=== PATIENT | female | born 1970 | race Caucasian/White ===

== ENCOUNTER 2022-06-15 00:21 | Day surgery (SDC) | payer BC, SELFPAY ==
[2022-05-28 14:12] VITALS: BMI 42.1
--- NOTE | 2022-06-14 13:29 | WPDANESEPPF ---
Anes - Initial Pre Proc Eval Procedure: Operation Date: 06/15/22 09:30 Proposed Procedures p Screening Colonoscopy - Randell Glass MD Date/Time: 06/14/22 13:29 Surgeon: Randell Glass MD Pre Op Diagnosis: neoplasm screening Patient Data Age: 51 Gender: F Height: 1.85 m Weight: 145 kg Allergies Allergy/AdvReac Type Severity Reaction Status Date / Time Penicillins Allergy Severe hives Verified 06/15/22 08:35 Home Medications Medication Instructions Recorded Confirmed Type bupropion HCl 100 mg tablet,12 hr 100 mg PO BID #180 tabs 03/28/22 06/08/22 Rx sustained-release metformin 500 mg tablet,extended 500 mg PO BID #180 tabs 03/28/22 06/08/22 Rx release 24 hr olmesartan 40 1 tablet PO DAILY #90 tabs 03/28/22 06/08/22 Rx mg-hydrochlorothiazide 25 mg tablet sodium sul 1.479 gram-potas ch See Rx Instructions PO PER PKG DIR 04/09/22 06/08/22 Rx 0.188 gram-magnes sul 0.225 gram #24 tabs tablet (Sutab) semaglutide 7 mg tablet (Rybelsus) See Rx Instructions .Route 05/23/22 06/08/22 Rx .COMPLEX #30 tabs levothyroxine 125 mcg tablet 125 mcg PO DAILY #90 tabs 06/07/22 06/08/22 Rx rosuvastatin 5 mg tablet See Rx Instructions .Route 06/07/22 06/08/22 Rx .COMPLEX #90 tabs Patient hx anesthesia problems: none Family hx anesthesia problems: none Results Review: All pre-operative results and documents have been reviewed as part of the pre-operative evaluation. [facility] Past Medical History Medical History Diabetes type 2, controlled History of endometrial biopsy (02/05/11) menorrhagia HTN (hypertension) Major depressive disorder, recurrent, moderate Mixed hyperlipidemia Screening mammogram, encounter for Tobacco use Surgical History Surgical History History of endometrial ablation (02/14/11) hscope endometrial ablation/tubal ligation--menorrhagia Family History Family History Mother Rhabdomyosarcoma Hypertension Lymphoma Father Hypertension Family history of elevated blood lipids Lymphoma Esophageal cancer Diabetes mellitus Grandparent Hypertension Breast cancer Diabetes mellitus Sibling Family history of elevated blood lipids Other Family history of osteoarthritis Social History Social History (Updated 06/08/22 @ 08:15 by ROLA Salomon) Social History: Engaged Years smoked: 10 Smoking status: Light tobacco smoker Tobacco type: cigarettes Second hand tobacco smoke exposure: Yes Smoking end date: 06/10/19 Additional smoking assessment comments: Pt smokes 2 cigarettes a week. Alcohol intake: never Substance use: never Substance use type: does not use Additional living arrangements comments: pt lives with fiance Additional occupation/education comments: Finance Gender identity (if verbalized by the patient): Female Sexual Orientation (if Verbalized by the Patient): Straight or Heterosexual Spiritual care concerns: No Anes - Eval Final PreProcedure Day of Procedure 06/14/22 13:29 Patient weight: morbidly obese Heart: regular rate and rhythm Lungs: clear to auscultation Airway: Mallampati scale class II Neurological: alert and oriented Last oral intake: >/= 8 hours ASA classification: III Emergent: no Anesthetic plan: proceed Anesthesia type and monitoring: general GIVS and standard monitoring Results Review: All pre-operative results and documents have been reviewed as part of the pre-operative evaluation. Informed Consent: The patient's anesthetic plan and its attendant risks and benefits were discussed with the patient/family/POA. Questions were solicited and answers provided to the satisfaction of the patient/family/POA.
[2022-06-15 08:36] VITALS: BP 135/77; PULSE 61; RESP 20; TEMP 36.4; O2SAT 99
[2022-06-15] MEDS: LACTATED RINGERS 1,000 ML 150 ML IV CONT (08:48)
[2022-06-15 08:49] LABS: Glucose Point of Care 92 mg/dl (65-105)
--- NOTE | 2022-06-15 09:08 | PM.HPGS ---
History of Present Illness History of Present Illness Consent: Risks, benefits, and alternatives have been discussed and questions answered. Patient agrees to proceed with procedure. Chief complaint: neoplasm screening Narrative: Thelma Wetzel is a 51 year old female here for first screening colonoscopy Review of Systems Constitutional: Constitutional: Denies headache(s) and Denies weakness Eyes: Eyes: Denies blurry vision ENT: Reports Normal hearing present, Denies headache(s) and Denies neck pain Cardiovascular: Cardiovascular: Denies chest pain and Denies dyspnea Respiratory: Respiratory: Denies dyspnea Gastrointestinal: Gastrointestinal: Reports no additional gastrointestinal complaints Genitourinary: Genitourinary: Denies dysuria Musculoskeletal: Musculoskeletal: Denies neck pain Integumentary/Breasts: Skin/Breast: Denies dry skin Neurologic: Reports Normal hearing present, Denies headache(s) and Denies weakness Psychiatric: Psychiatric: Denies anxiety Endocrine: Endocrine: Denies change in body appearance Hematologic/Lymphatic: Hematologic/Lymphatic: Denies easy bleeding Allergic/Immunologic: Allergic/Immunologic: Denies urticaria PMFSH Past Medical History Medical History Diabetes type 2, controlled History of endometrial biopsy (02/05/11) menorrhagia HTN (hypertension) Major depressive disorder, recurrent, moderate Mixed hyperlipidemia Screening mammogram, encounter for Tobacco use Surgical History Surgical History History of endometrial ablation (02/14/11) hscope endometrial ablation/tubal ligation--menorrhagia Family History Family History Mother Rhabdomyosarcoma Hypertension Lymphoma Father Hypertension Family history of elevated blood lipids Lymphoma Esophageal cancer Diabetes mellitus Grandparent Hypertension Breast cancer Diabetes mellitus Sibling Family history of elevated blood lipids Other Family history of osteoarthritis Social History Social History (Updated 06/08/22 @ 08:15 by ROLA Salomon) Social History: Engaged Years smoked: 10 Smoking status: Light tobacco smoker Tobacco type: cigarettes Second hand tobacco smoke exposure: Yes Smoking end date: 06/10/19 Additional smoking assessment comments: Pt smokes 2 cigarettes a week. Alcohol intake: never Substance use: never Substance use type: does not use Living arrangements: with family Additional living arrangements comments: pt lives with fiance Additional occupation/education comments: Finance Gender identity (if verbalized by the patient): Female Sexual Orientation (if Verbalized by the Patient): Straight or Heterosexual Spiritual care concerns: No Meds Home Medications and Allergies Home Medications Medication Instructions Recorded Confirmed Type bupropion HCl 100 mg tablet,12 hr 100 mg PO BID #180 tabs 03/28/22 06/08/22 Rx sustained-release metformin 500 mg tablet,extended 500 mg PO BID #180 tabs 03/28/22 06/08/22 Rx release 24 hr olmesartan 40 1 tablet PO DAILY #90 tabs 03/28/22 06/08/22 Rx mg-hydrochlorothiazide 25 mg tablet sodium sul 1.479 gram-potas ch See Rx Instructions PO PER PKG DIR 04/09/22 06/08/22 Rx 0.188 gram-magnes sul 0.225 gram #24 tabs tablet (Sutab) semaglutide 7 mg tablet (Rybelsus) See Rx Instructions .Route 05/23/22 06/08/22 Rx .COMPLEX #30 tabs levothyroxine 125 mcg tablet 125 mcg PO DAILY #90 tabs 06/07/22 06/08/22 Rx rosuvastatin 5 mg tablet See Rx Instructions .Route 06/07/22 06/08/22 Rx .COMPLEX #90 tabs Allergies Allergy/AdvReac Type Severity Reaction Status Date / Time Penicillins Allergy Severe hives Verified 06/15/22 08:35 Vital Signs Vital Signs - 24 hr 06/15/22 08:36 Temperature 97.5 F L Pulse Rate 61 Respiratory Rate 20 Blood Pressure 135/77 Pulse Oxi
[2022-06-15 09:30] VITALS: BP 113/70; PULSE 72; RESP 17; O2SAT 95
[2022-06-15 09:40] VITALS: BP 105/77; PULSE 65; RESP 14; O2SAT 96
[2022-06-15 09:50] VITALS: BP 127/73; PULSE 71; RESP 18; O2SAT 99
== END 2022-06-15 09:57 | disposition home or self-care (01) ==
PROVIDERS: PCP Family Medicine; Visit Provider Internal Medicine Gastroenterology
PROC: 0DJD8ZZ Inspection of Lower Intestinal Tract, Via Natural or Artificial Opening Endoscopic (ICD-10-PCS; CPT 45378; principal; 2022-06-15 09:30)
DX: Z12.11 Encounter for screening for malignant neoplasm of colon (principal); K57.30 Diverticulosis of large intestine without perforation or abscess without bleeding; K64.8 Other hemorrhoids; K64.4 Residual hemorrhoidal skin tags; E11.9 Type 2 diabetes mellitus without complications; I10 Essential (primary) hypertension; F32.A Depression, unspecified; E78.2 Mixed hyperlipidemia; F17.210 Nicotine dependence, cigarettes, uncomplicated; E03.9 Hypothyroidism, unspecified; Z79.84 Long term (current) use of oral hypoglycemic drugs; E66.01 Morbid (severe) obesity due to excess calories; Z68.41 Body mass index [BMI] 40.0-44.9, adult
CPT/HCPCS: 45378; 82948; J2704; J7120

== ENCOUNTER → 2022-07-03 12:09 | Outpatient (CLI) | payer BC, SELFPAY ==
--- NOTE | ~2022-07-03 | MM_ITS ---
EXAMINATION: MM screening [facility] BI w amina HISTORY: Screening mammogram TECHNIQUE: Craniocaudal and mediolateral oblique 3-D tomosynthesis images were obtained and synthetic 2-D images were generated. CAD analysis was submitted and interpreted. COMPARISON: 08/27/2019, 04/18/2016 BREAST PARENCHYMAL COMPOSITION: The breasts are heterogeneously dense, which may obscure small masses . FINDINGS: There is no suspicious mass, calcification, or architectural distortion to suggest malignan cy in either breast. There has been no suspicious interval change. IMPRESSION: 1. No mammographic evidence of malignancy. 2. Recommend routine screening mammography in one year. BI-RADS Category 1: Negative Reviewed, dictated and finalized at location A.
== END ==
PROVIDERS: PCP Family Medicine; Visit Provider Obstetrics & Gynecology
DX: Z12.31 Encounter for screening mammogram for malignant neoplasm of breast (principal)
CPT/HCPCS: 77063; 77067

== ENCOUNTER 2023-09-06 10:09 | Outpatient (CLI) | payer BC, SELFPAY ==
--- NOTE | 2023-09-06 10:16 | EST_ITS ---
Patient Info Name: Thelma Wetzel Age: 53 years : 1970 Gender: Female Ht: 73 in Wt: 310 lbs BSA: 2.75 m2 Exam Date: 09/06/2023 10:36 AM Exam Location: Echo Lab Patient Status: Outpatient Admit Date: 09/06/2023 Staff Ordering Physician: Ruthy Jenkins PA-C Attending Provider: Ruthy Jenkins PA-C Exercise Technologist: Rosie Rausch RDCS Exercise Physician: Melvin Luo DO Exam Type: CA stress test treadmill Study Info Indications R07.9 - Chest pain, unspecified A treadmill exercise stress test was performed. Summary 1. 1. Negative Melecio exercise stress test for ischemic ST changes by ECG criteria. However patient achieved only 80% MPHR for age group which reduces sensitivity of the test. 2. 2. Reduced functional capacity, achieving 7 METs of workload. 3. 3. Baseline hypertension. 4. 4. Appropriate HR response to exercise. 5. 5. Appropriate HR recovery at 1 minute post exercise. 6. 6. No imaging with stress testing. 7. 7. Patient informed of the above results. Protocol: Melecio Stress ECG Details Stage: REST Duration (min): 0 min : 52 sec Speed (mph): 0.0 Grade (%): 0 HR (bpm): 60 SBP (mmHg): 145 DBP (mmHg): 73 METS: --- Stage: REST Duration (min): 9 min : 4 sec Speed (mph): 0.0 Grade (%): 0 HR (bpm): 79 SBP (mmHg): 145 DBP (mmHg): 73 METS: --- Stage: STAGE 1 Duration (min): 1 min : 0 sec Speed (mph): 1.7 Grade (%): 10 HR (bpm): 95 SBP (mmHg): 145 DBP (mmHg): 73 METS: --- Stage: STAGE 1 Duration (min): 2 min : 0 sec Speed (mph): 1.7 Grade (%): 10 HR (bpm): 102 SBP (mmHg): 145 DBP (mmHg): 73 METS: --- Stage: STAGE 1 Duration (min): 3 min : 0 sec Speed (mph): 1.7 Grade (%): 10 HR (bpm): 107 SBP (mmHg): 140 DBP (mmHg): 94 METS: --- Stage: STAGE 2 Duration (min): 1 min : 0 sec Speed (mph): 2.5 Grade (%): 12 HR (bpm): 121 SBP (mmHg): 140 DBP (mmHg): 94 METS: --- Stage: STAGE 2 Duration (min): 2 min : 0 sec Speed (mph): 0.0 Grade (%): 0 HR (bpm): 131 SBP (mmHg): 160 DBP (mmHg): 77 METS: --- Stage: STAGE 2 Duration (min): 2 min : 39 sec Speed (mph): 0.0 Grade (%): 0 HR (bpm): 122 SBP (mmHg): 160 DBP (mmHg): 77 METS: --- Stage: RECOVERY Duration (min): 0 min : 21 sec Speed (mph): 0.0 Grade (%): 0 HR (bpm): 118 SBP (mmHg): 160 DBP (mmHg): 77 METS: --- Stage: RECOVERY Duration (min): 1 min : 21 sec Speed (mph): 0.0 Grade (%): 0 HR (bpm): 105 SBP (mmHg): 160 DBP (mmHg): 77 METS: --- Stage: RECOVERY Duration (min): 2 min : 21 sec Speed (mph): 0.0 Grade (%): 0 HR (bpm): 98 SBP (mmHg): 160 DBP (mmHg): 77 METS: --- Stage: RECOVERY Duration (min): 3 min : 21 sec Speed (mph): 0.0 Grade (%): 0 HR (bpm): 91 SBP (mmHg): 165 DBP (mmHg): 72 METS: --- Stage: RECOVERY Duration (min): 4 min : 21 sec Speed (mph): 0.0 Grade (%): 0 HR (
== END 2023-09-06 10:10 | disposition home or self-care (01) ==
PROVIDERS: PCP Family Medicine; Visit Provider Physician Assistant
DX: R07.9 Chest pain, unspecified (principal)
CPT/HCPCS: 93017

== ENCOUNTER → 2023-11-07 14:33 | Outpatient (CLI) | payer BC, SELFPAY ==
--- NOTE | ~2023-11-07 | MM_ITS ---
EXAMINATION: MM screening [facility] BI w amina HISTORY: Screening mammogram TECHNIQUE: Craniocaudal and mediolateral oblique 3-D tomosynthesis images were obtained and synthetic 2-D images were generated. CAD analysis was submitted and interpreted. COMPARISON: 07/03/2022, 08/27/2019, 04/18/2016 BREAST PARENCHYMAL COMPOSITION: The breasts are heterogeneously dense, which may obscure small masses . FINDINGS: No suspicious mass, calcification, or architectural distortion are identified in either lyudmila ast to suggest malignancy. There has been no suspicious interval change. IMPRESSION: 1. No mammographic evidence of malignancy. 2. Recommend routine screening mammography in one year. BI-RADS Category 1: Negative Reviewed, dictated and finalized at location A. OGY TUTOR
== END ==
PROVIDERS: PCP Obstetrics & Gynecology; Visit Provider Obstetrics & Gynecology
DX: Z12.31 Encounter for screening mammogram for malignant neoplasm of breast (principal)
CPT/HCPCS: 77063; 77067

== ENCOUNTER 2024-12-16 14:41 | Outpatient (CLI) | payer BC, SELFPAY ==
--- NOTE | ~2024-12-16 | US_ITS ---
EXAMINATION: US thyroid DATE: 12/16/2024 15:04 INDICATION: Nontoxic goiter, unspecified. TECHNIQUE: Multiple ultrasound images of the thyroid were obtained. COMPARISON: None. FINDINGS: The right thyroid lobe measures 4.6 x 1.4 x 1.7 cm. The left thyroid lobe measures 5.1 x 2.1 x 2.3 c m. The thyroid is diffusely heterogeneous and hypoechoic. Vascularity is normal. In the left thyroid lobe, there is a 15 mm solid, isoechoic, wider than tall nodule with smooth margin without echogenic foci (TI-RADS TR3). IMPRESSION: 1. Heterogeneous thyroid, likely chronic lymphocytic (Mirian) thyroiditis. 2. Thyroid nodule. Consider thyroid ultrasound in one year. Reviewed, dictated and finalized at location A. SIZER
--- OUTSIDE RECORDS SUMMARY | 2024-12-16 14:46 | XMS_ITS | Referral Summary ---
Author Organization [facility] Address [address] [place] [address] Care Team Providers Care Electrical Maintenance Supervisor Name Role Phone Suzette Ibarra MD Primary Care Provider + Source Comments [facility],non-owned Affiliates and Associated Physician Practices is amultiple site organization consisting of ambulatory clinics and hospital sitesin [place], [place], [place] and [place]. This disclosure is being madepursuant to the Care Everywhere program and may not contain all information available regarding this patient. Last updated 18.[facility] Allergies Active Allergy Reactions Criticality Noted Date Comments Penicillins Urticaria Medium 08/04/2016 Medications * Be aware that medications may not be up to date on this document. Alwaysverify current medications with the patient. Medication Sig Dispensed Refills Start Date End Date Status Olmesartan Medoxomil (BENICAR PO) Active METFORMIN HCL PO Active buPROPion SR 12hr (Wellbutrin-SR) 100 MG tablet Take 1 (one) tablet by mouth 2 times daily 05/04/2023 Active levothyroxine (Synthroid) 125 MCG tablet Take 1 (one) tablet by mouth once daily 05/04/2023 Active rosuvastatin (Crestor) 20 MG tablet Take 1 (one) tablet by mouth once daily 06/12/2023 Active terbinafine (LamISIL) 250 MG tablet Take 1 (one) tablet by mouth once daily Active Social History Tobacco Use Types Packs/Day Years Used Date Smoking Tobacco: Some Days Cigarettes Passive Smoke Exposure: Never Smokeless Tobacco: Never Tobacco Cessation:Ready to Q uit: Not Asked; Counseling Given: Not Answered Alcohol Use Standard Drinks/Week Comments Yes 0 (1 standard drink = 0.6 oz pur e alcohol) social Sex and Gender Information Value Date Recorded Sex Assigned at Not on file Gender Identity Not on file Sexual Orientation Not on file Last Filed Vital Signs Vital Sign Reading Time Taken Comments Blood Pressure 141/79 07/18/2023 1:53 PM CDT Pulse 79 07/18/2023 1:53 PM CDT Temperature 36.3 C (97.3 F) 07/18/2023 1:53 PM CDT Respiratory Rate 18 07/18/2023 1:53 PM CDT Oxygen Saturation 96% 07/18/2023 1:53 PM CDT Inhaled Oxygen Concentration - - Weight 142.9 kg (315 lb) 09/09/2023 10:57 AM KITCHEN STEWARD/STEWARDESS Height 185.4 cm (6' 1 ) 09/09/2023 10:57 AM KITCHEN STEWARD/STEWARDESS Body Mass Index 41.56 09/09/2023 10:57 AM KITCHEN STEWARD/STEWARDESS Plan of Treatment Not on file Care Teams Electrical Maintenance Supervisor Relationship Specialty Start Date End Date Suzette Ibarra MD [address] [place] [address] PCP - General Family Medicine 08/04/16
--- OUTSIDE RECORDS SUMMARY | 2024-12-16 14:46 | XMS_ITS | Clinical Summary ---
Author Organization [facility] Address [address] [place] [address] Care Team Providers Care Tissue Recovery Technician Name Role Phone Suzette Ibarra MD Primary Care Provider + Source Comments [facility],non-owned Affiliates and Associated Physician Practices is amultiple site organization consisting of ambulatory clinics and hospital sitesin [place], [place], [place] and [place]. This disclosure is being madepursuant to the Care Everywhere program and may not contain all information available regarding this patient. Last updated 18.[facility] Allergies Active Allergy Reactions Criticality Noted Date [...] 142.9 kg (315 lb) 09/09/2023 10:57 AM COLLATERAL ANALYST Height 185.4 cm (6' 1 ) 09/09/2023 10:57 AM COLLATERAL ANALYST Body Mass Index 41.56 09/09/2023 10:57 AM COLLATERAL ANALYST Plan of Treatment Health Maintenance Due Date Last Done Comments COLOGUARD (AGES 45-75) - COL ON CA SCREENING 1970 COLON MONITORING 1970 COLONOSCOPY - COLON CA SCREENING 1971 CT COLONOGRAPHY - COLON CA SCREENING 1970 Colorectal Cancer Screening 1970 FIT - COLON CA SCREENING 1971 FLEX SIG - COLON CA SCREENING 1970 MAMMOGRAM 1971 PAP SMEAR 1971 HIV SCREENING 1986 HEPATITIS C SCREENING 07/28/1989 DTAP/TDAP/TD VACCINES (1 - Tdap) 1990 HEPATITIS B VACCINE (1 of 3 - 19+ 3-dose series) 1990 PNEUMOCOCCAL VACCINE 50+ (1 of 2 - PCV) 1990 PNEUMOCOCCAL VACCINE (1 of 2 - PCV) 1990 ZOSTER VACCINE (1 of 2) 2021 SCREENING FOR DIABETES 07/18/2023 COVID-19 VACCINE (1 - 2023-2 5 season) 2024 INFLUENZA VACCINE (#1) 2024 DEPRESSION SCREENING 11/04/2024 HIB VACCINE Aged Out No longer eligi ble based on patient's age to complete this topic HPV VACCINE Aged Out No longer eligi ble based on patient's age to complete this topic MENINGOCOCCAL (Group B) VACCINE Aged Out No longer eligible based on patient's age to complete this topic MENINGOCOCCAL VACCINE Aged Out No tarah sampson eligible based on patient's age to complete this topic Care Teams Tissue Recovery Technician Relationship Specialty Start Date End Date Suzette Ibarra MD [address] [place] [address] PCP - General Family Medicine 08/04/16
--- OUTSIDE RECORDS SUMMARY | 2024-12-16 14:46 | XMS_ITS | Clinical Summary ---
Author Organization [facility] Address [address] [place] [address] Care Team Providers Care Medical Unit Secretary Name Role Phone Suzette Ibarra MD Primary Care Provider [phone]- [phone] Allergies Active Allergy Reactions Criticality Noted Date Comments Penicillins Hives 08/14/2023 Medications levothyroxine (SYNTHROID) 125 MCG tablet Take 1 tablet (125 mcg total) by mouth every morning. Active rosuvastatin (CRESTOR) 10 MG tablet Take 1 tablet (10 mg total) by mouth nightly at bedtime. Active metFORMIN (GLUCOPHAGE) 500 MG tablet Take 1 tablet (500 mg total) by mouth 2 (two) times daily with meals. Active buPROPion SR (WELLBUTRIN SR) 100 MG 12 hr tablet Take 1 tablet (100 mg total) by mouth 2 (two) times daily. Active olmesartan (BENICAR) 40 MG tablet Take 1 tablet (40 mg total) by mouth daily. Active hydroCHLOROthia zide (HYDRODIURIL) 25 MG tablet Take 1 tablet (25 mg total) by mouth every morning. Active terbinafine (LAMISIL) 250 MG tablet Take 1 tablet (250 mg total) by mouth daily. Active Social History Tobacco Use Types Packs/Day Years Used Date Smoking Tobacco: Every Day Cigarettes Smokeless Tobacco: Never Tobacco Cessation:Ready to Q uit: Not Asked; Counseling Given: Not Answered Alcohol Use Standard Drinks/Week Comments Not Currently 0 (1 standard drink = 0.6 oz pur e alcohol) Comments No Sex and Gender Information Value Date Recorded Sex Assigned at Not on file Legal Sex Female 6:17 PM CDT Gender Identity Not on file Sexual Orientation Not on file Last Filed Vital Signs Vital Sign Reading Time Taken Comments Blood Pressure 140/100 08/14/2023 6:26 PM CDT Pulse 82 08/14/2023 6:26 PM CDT Temperature 36.7 C (98 F) 08/14/2023 6:26 PM CDT Respiratory Rate 20 08/14/2023 6:26 PM CDT Oxygen Saturation 96% 08/14/2023 6:26 PM CDT Inhaled Oxygen Concentration - - Weight 95.3 kg (210 lb) 08/14/2023 6:26 PM CDT Height 188 cm (6' 2 ) 08/14/2023 6:26 PM CDT Body Mass Index 26.96 08/14/2023 6:26 PM CDT Plan of Treatment Health Maintenance Due Date Last Done Comments Cervical Cancer Screening Pa p Smear (Age 30 to 64) Every 3 Years 1970 Colorectal Cancer Screening Colonoscopy (10 Years) 1971 Annual Physical 1974 Pneumococcal Vaccine: Pediat rics (0 to 5 Years) and At-Risk Patients (6 to 64 Years) (1 of 2 - PCV) 1977 Hepatitis C 1989 DTaP, Tdap and Td Vaccines ( 1 - Tdap) 1990 Hepatitis B Vaccines (1 of 3 - 19+ 3-dose series) 1990 Cervical Cancer Screening Pa p with HPV Testing (Age 30 to 64) Every 5 Years 2001 Cervical Cancer Screening with HPV 2001 Mammogram Screening 2011 Zoster Vaccines (1 of 2) 2021 COVID-19 Vaccine ( - 2023-2 5 season) 2024 Influenza Adult (#1) 2024 09/22/2018 Meningococcal B Vaccine Aged Out No l onger eligible based on patient's age to complete this topic Meningococcal Vaccine Aged Out No tarah sampson eligible based on patient's age to complete this topic RSV Immunizations Under 20 Months Aged Out No longer eligible based on patient's age to complete this topic Insurance [facility] Care Teams Medical Unit Secretary Relationship Specialty Start Date End Date Suzette Ibarra MD [address] [place] [address] PCP - General FAMILY PRACTICE 08/14/23
--- OUTSIDE RECORDS SUMMARY | 2024-12-16 14:46 | XMS_ITS | Patient Health Summary ---
Author Organization [facility] Address [address] [place] [address] Care Team Providers Care Continuous Improvement Coordinator Name Role Phone Suzette Ibarra MD Primary Care Provider + Note from [facility],non-owned Affiliates and Associated Physician Practices is amultiple site organization consisting of ambulatory clinics and hospital sitesin [place], [place], [place] and [place]. This disclosure is being madepursuant to the Care Everywhere program and may not contain all information available regarding this patient. Last updated 18.[facility] Allergies * Penicillins(Urticaria) -Medium Criticality Medications * Be aware that medications may not be up to date on this document. Alwaysverify current medications with the patient. * Olmesartan Medoxomil (BENICAR PO) * METFORMIN HCL PO * buPROPion SR 12hr (Wellbutrin-SR) 100 MG tablet(Started 05/04/2023) Take 1 (one) tablet by mouth 2 times daily * levothyroxine (Synthroid) 125 MCG tablet(Started 05/04/2023) Take 1 (one) tablet by mouth once daily * rosuvastatin (Crestor) 20 MG tablet(Started 06/12/2023) Take 1 (one) tablet by mouth once daily * terbinafine (LamISIL) 250 MG tablet Take 1 (one) tablet by mouth once daily Social History Tobacco Use Types Packs/Day Years [...] 142.9 kg (315 lb) 09/09/2023 10:57 AM FURNITURE DECALS INSPECTOR Height 185.4 cm (6' 1 ) 09/09/2023 10:57 AM FURNITURE DECALS INSPECTOR Body Mass Index 41.56 09/09/2023 10:57 AM FURNITURE DECALS INSPECTOR Care Teams Continuous Improvement Coordinator Relationship Specialty Start Date End Date uSzette Ibarra MD [address] [place] [address] PCP - General Family Medicine 08/04/16
== END 2024-12-16 14:42 | disposition home or self-care (01) ==
LOC: CHSIMG 14:42
PROVIDERS: PCP Family Medicine; Visit Provider Physician Assistant
DX: E04.9 Nontoxic goiter, unspecified (principal)
CPT/HCPCS: 76536

== ENCOUNTER 2025-04-30 14:01 | Outpatient (CLI) | payer BC, SELFPAY ==
--- NOTE | ~2025-04-30 | MM_ITS ---
EXAMINATION: MM screening [facility] BI w amina HISTORY: Screening mammogram TECHNIQUE: Craniocaudal and mediolateral oblique 3-D tomosynthesis images were obtained and synthetic 2-D images were generated. CAD analysis was submitted and interpreted. COMPARISON: 11/07/2023, 07/03/2022, 08/27/2019 BREAST PARENCHYMAL COMPOSITION:Not Dense. There are scattered areas of fibroglandular density. FINDINGS: No suspicious mass, calcification, or architectural distortion are identified in either lyudmila ast to suggest malignancy. There has been no suspicious interval change. IMPRESSION: No mammographic evidence of malignancy. Recommend routine screening mammography in one year. BI-RADS Category 1: Negative Reviewed, dictated and finalized at location .
== END 2025-04-30 14:02 | disposition home or self-care (01) ==
LOC: MICIMG 14:01
PROVIDERS: PCP Family Medicine; Visit Provider Obstetrics & Gynecology
DX: Z12.31 Encounter for screening mammogram for malignant neoplasm of breast (principal)
CPT/HCPCS: 77063; 77067